=== PATIENT | female | born 1945 | race Caucasian/White ===

== ENCOUNTER 2016-10-02 14:41 | Day surgery (SDC) | payer MEDICARE, OTHER ==
[~2016-10-02] VITALS: Ht 167.6 cm; Wt 82.5 kg
[~2016-10-02 14:41] MED LIST: 0.9% Sodium Chloride 1,000 ML IV SCH; CLAR10T PO; DULO60CA42 PO; IRBE150T3 PO; METH750T PO; MVI PO; OXYC-176 PO; Sodium Chloride LOK Flush 10 mL Syringe IV PRN; ULTRAM50 MG PO; VIS25 PO; [UNRECOGNIZED DRUG - CODE] PO; [UNRECOGNIZED DRUG - CODE] SQ; calcium 600mg; fentaNYL-PF 50 mCg/mL 2 mL Inj IVPUSH PRN
[2016-10-02 15:11] VITALS: BP 131/70; PULSE 79; RESP 16; O2SAT 96
[2016-10-02] MEDS ORDERED: DULO60CA61 PO (15:25)
[2016-10-02] MEDS ORDERED: PRV40T PO (15:25)
[2016-10-02] MEDS ORDERED: ASPI-973 PO (15:25)
[2016-10-02] MEDS ORDERED: LEVO50TA6 PO (15:25)
[2016-10-02] MEDS ORDERED: L. A1CAP11 PO (15:25)
[2016-10-02] MEDS ORDERED: FLAX100038 PO (15:25)
[2016-10-02] MEDS ORDERED: PANT40TA3 PO (15:25)
[2016-10-02] MEDS ORDERED: IRBE150T28 PO (15:25)
[2016-10-02] MEDS ORDERED: DOCU240C41 PO (15:25)
[2016-10-02] MEDS ORDERED: OXYB5TAB10 PO (15:25)
[2016-10-02] MEDS ORDERED: TRAM50TA2 PO (15:25)
[2016-10-02] MEDS ORDERED: KEN25CR EXT (15:25)
[2016-10-02] MEDS ORDERED: MULT-1018 PO (15:25)
[2016-10-02] MEDS ORDERED: CALC600T12 PO (15:25)
[2016-10-02] MEDS ORDERED: MELA1TAB16 PO (15:25)
[2016-10-02] MEDS ORDERED: VITA400C64 PO (15:25)
[2016-10-02] MEDS ORDERED: OMEG1CAP99 PO (15:25)
--- NOTE | 2016-10-02 17:11 | PCM.ENDCOL ---
Colonoscopy Date of Service: Oct 02, 2016 Physician Santosh Mcnulty MD Pre Procedure Diagnosis: Screening constipation Post Procedure Dx & Findings: Poor prep polyp Procedure Colonoscopy PROCEDURE IN DETAIL: Prep poor After unremarkable rectal examination the Olympus video colonoscope was inserted patient's anal canal and was advanced to cecum. Landmarks were identified including the ileocecal valve and appendiceal orifice. Scope was withdrawn systematically. Visualized colonic mucosa showed healthy shiny mucosa with normal healthy-appearing vasculature. In the ascending colon there was a 3 mm polyp which was removed completely using cold snare. In the rectum retroflexion was done which showed hemorrhoids. Anal canal was inspected carefully on the way out and hemorrhoids noted. Impression Polyp times 1 status post complete removal Poor prep Hemorrhoids Recommendation Repeat colonoscopy in 3 months with 2 days of GoLYTELY. Presedation Assessment Risks and Benefits Informed consent was obtained from the patient after all risks and benefits including but not limited to drug reaction, infection, pain, bleeding, perforation, as well as alternatives were discussed. Patient monitoring Continuous pulse oximetry, cardiac monitoring, blood pressure monitoring, IV access, and oxygen at 2L per nasal cannula. Periprocedural Fentanyl: Fentanyl 100mcg Incrementally Midazolam: Midazolam 5mg Incrementally Complications There were no periprocedural complications identified. Post Procedure Plan Post Procedure Recommendations 1. Restrict activities today. 2. Resume normal activities in the morning. 3. Resume medications. 4. Patient informed of normal post procedure side effects as bloating, drowsiness, blood streaking in the stool. 5. average risk CRCS. If colon polyps come back as: -Hyperplastic- can repeat colonoscopy in 10 years -Tubular adenoma- repeat colonoscopy in 5 years -Tubulovillous/villous adenoma- repeat colonoscopy in 3 years -If any dysplasia- return to clinic as soon as possible 6. Please don't hesitate to call me with any questions. Santosh Mcnulty MD Oct 02, 2016 17:11
[2016-10-02 17:15] VITALS: BP 105/62; PULSE 67; RESP 16; O2SAT 97
[2016-10-02 17:25] VITALS: BP 110/63; PULSE 72; RESP 16; O2SAT 98
[2016-10-02 17:35] VITALS: BP 102/59; PULSE 79; RESP 16; O2SAT 98
--- NOTE | 2016-10-05 09:34 | PATH ---
SURGICAL PATHOLOGY Attending Physician:Santosh Mcnulty M.D. CASE STATUS: Signed Out PATIENT NAME: RITA ROBB PID: [id number] : 1945 DATE COLLECTED:10/02/2016 00:00 SPECIMEN: Colon, Polyp CLINICAL HISTORY: 1. ASCENDING COLON POLYP FINAL DIAGNOSIS: 1.ASCENDING COLON, POLYP, BIOPSY: TUBULAR ADENOMA; NEGATIVE FOR HIGH-GRADE DYSPLASIA. ICD10 K63.5 GROSS DESCRIPTION: Received one formalin-filled container, labeled with the patient's name and labeled "descending colon polyp". Specimen consists of a 0.3 x 0.3 x 0.3 cm portion of tissue which is entirely submitted in one cassette. ([facility] [place]:[id number]) MICRO DESCRIPTION: See diagnosis. ICD-9 CODES: CPT CODES: 1: 98333 Electronically Signed Out Ester López MD [facility] [address], [place] [address] Technical component performed at [facility], [facility] [address], [place], [address]
== END 2016-10-02 23:59 | disposition home or self-care (01) ==
LOC: END 14:41
PROVIDERS: ATTEND Internal Medicine
DX: Z12.11 Encounter for screening for malignant neoplasm of colon (principal); D12.2 Benign neoplasm of ascending colon; K64.9 Unspecified hemorrhoids; K59.00 Constipation, unspecified; I10 Essential (primary) hypertension; E78.5 Hyperlipidemia, unspecified; E03.9 Hypothyroidism, unspecified; Z79.82 Long term (current) use of aspirin
CPT/HCPCS: 45385; 88305; 99153; G0500; J2250; J3010; J7030